=== PATIENT | female | born 1990 | race Caucasian/White ===

== ENCOUNTER 2020-09-29 08:32 | Outpatient (CLI) | payer BC ==
[2020-09-30 11:11] LABS: CREATININE, URINE 26.1 mg/dL (Not Estab.); MICROALB/CREAT RATIO <11 (0-29)
[2020-10-06] MEDS ORDERED: DOCUSATE SODIU100 MG PO (10:51)
[2020-10-06] MEDS ORDERED: IBUPROFEN600 MG PO (10:51)
[2020-10-06] MEDS ORDERED: HYDROCODON-ACE1 EAC4 PO (10:51)
== END 2020-09-29 12:38 | disposition home or self-care (01) ==
LOC: GENOP 08:32
PROVIDERS: Obstetrics & Gynecology
DX: O32.1XX0 Maternal care for breech presentation, not applicable or unspecified (principal); Z3A.37 37 weeks gestation of pregnancy
CPT/HCPCS: 82043; 82570; 84156; 96360; 96361; 96372; J3105; J7120

== ENCOUNTER → 2020-10-05 | Outpatient (CLI) | payer BC, OTHER ==
[~2020-10-05] MED LIST: DOCUSATE SODIU100 MG PO; HYDROCODON-ACE1 EAC4 PO; IBUPROFEN600 MG PO; PRENATABS FA T1 EACH PO; TYLENOL 500 MG500 MG PO
[2020-10-05 15:39] LABS: RED BLOOD COUNT 3.92 M/UL (4.00-5.10); WHITE BLOOD COUNT 13.8 K/UL (4.5-11.0)
== END ==
LOC: GENOP 14:57
PROVIDERS: Obstetrics & Gynecology
DX: Z53.8 Procedure and treatment not carried out for other reasons (principal)
CPT/HCPCS: 36415; 81001; 85025

== ENCOUNTER 2020-10-06 07:30 | Inpatient (IN) | payer BC, OTHER ==
[~2020-10-06] VITALS: Ht 157.5 cm; Wt 87.5 kg
[2020-10-06] MEDS ORDERED: TYLENOL 500 MG500 MG PO (09:01)
[2020-10-06] MEDS ORDERED: PRENATABS FA T1 EACH PO (09:01)
[2020-10-06] MEDS ORDERED: HYDROCODON-ACE1 EAC4 PO (10:51)
[2020-10-06] MEDS ORDERED: DOCUSATE SODIU100 MG PO (10:51)
[2020-10-06] MEDS ORDERED: IBUPROFEN600 MG PO (10:51)
[2020-10-07 03:02] LABS: HEMOGLOBIN 10.9 gm/dl (12.3-15.3)
== END 2020-10-07 13:18 | disposition home or self-care (01) | DRG 788 ==
LOC: OB 08:09
PROVIDERS: ADMIT Obstetrics & Gynecology
PROC: 4A1HX4Z Monitoring of Products of Conception, Cardiac Electrical Activity, External Approach (ICD-10-PCS; 2020-10-06)
PROC: 10D00Z1 Extraction of Products of Conception, Low, Open Approach (ICD-10-PCS; principal; 2020-10-06 07:30)
DX: O13.4 Gestational [pregnancy-induced] hypertension without significant proteinuria, complicating childbirth (principal); O32.1XX0 Maternal care for breech presentation, not applicable or unspecified; Z3A.38 38 weeks gestation of pregnancy; Z37.0 Single live birth; Z86.16 Personal history of COVID-19; Z20.822 Contact with and (suspected) exposure to COVID-19; O99.824 Streptococcus B carrier state complicating childbirth
CPT/HCPCS: 36415; 81001; 82800; 85014; 85018; 85025; 90715; C9113; J0690; J1170; J1885; J2274; J2405; J2590; J3010; J7120